=== PATIENT | female | born 1985 | race Caucasian/White ===

== ENCOUNTER 2017-01-24 10:38 | Emergency (ER) | payer OTHER ==
[2017-01-24 10:38] VITALS: BMI 25.2
[2017-01-24 10:55] VITALS: BP 113/74; PULSE 73; RESP 20; TEMP 98.7; O2SAT 97
--- NOTE | 2017-01-24 12:19 | C.PDOC ---
History Of Present Illness 31 yo female come in for evaluation of Left foot pain for past week. Pt describes pain is localized over dorsal aspect left foot, non-radiating and worse with weight bearing. Otherwise, pt denies known trauma or injury, fever, chills, skin changes, weakness, deformity, sensory or vascular deficits to Left foot. Ambulate to ED for evaluation, not in any apparent distress. Time Seen by Provider: 01/24/17 11:28 Chief Complaint (Nursing): Lower Extremity Problem/Injury History Per: Patient History/Exam Limitations: no limitations Onset/Duration Of Symptoms: Persistent (1 week) Current Symptoms Are (Timing): Still Present Past Medical History Reviewed: Historical Data, Nursing Documentation, Vital Signs Vital Signs: Last Vital Signs Temp 98.7 F 01/24/17 10:54 Pulse 73 01/24/17 10:54 Resp 20 01/24/17 10:54 BP 113/74 01/24/17 10:54 Pulse Ox 97 01/24/17 13:36 Family History: States: No Known Family Hx - Social History Hx Tobacco Use: No Hx Alcohol Use: No Hx Substance Use: No - Immunization History Hx Tetanus Toxoid Vaccination: Yes Hx Influenza Vaccination: Yes Hx Pneumococcal Vaccination: No Review Of Systems Except As Marked, All Systems Reviewed And Found Negative. Constitutional: Negative for: Fever, Chills Musculoskeletal: Positive for: Foot Pain (Left foot pain, dorsal aspect ), Other (No deformity. ) Neurological: Negative for: Weakness Physical Exam - Physical Exam Appears: Well, Non-toxic, No Acute Distress Skin: Normal Color, Warm, No Rash, No Ecchymosis Extremity: Normal ROM (Left foot), Tenderness (mild tenderness Left foot dorsal aspect overlying 5th MTB. No palpable deformity, no neurovascular deficits. No skin changes.), No Pedal Edema, No Calf Tenderness, Capillary Refill (less than 2sec to left foot.), No Deformity, No Swelling Extremity: Bilateral: Atraumatic Neurological/Psych: Oriented x3, Normal Speech, Normal Motor, Normal Sensation, Normal Reflexes ED Course And Treatment O2 Sat by Pulse Oximetry: 97 Pulse Ox Interpretation: Normal - Other Rad X-Ray - Left Foot X-Ray: Interpreted by Me, Viewed By Me Interpretation: no acute fx or dislocation Progress Note: On re-eavluation, pt is afebrile, hemodynamiclay stable. NOn- toxic. Left foot: exam c/w foot arthralgia. FAROM, no neurovascular deficits. No cellulitis. xray review and appears normal. Pt advised and ref. to f/u with Warehouse Production Worker in 2-3 days for re-evaluation. Return to ED if any worsening or new changes. Medical Decision Making Medical Decision Making: PLAN: * X-Ray - Left Foot * Motrin PO Disposition Counseled Patient/Family Regarding: Studies Performed, Diagnosis, Need For Followup, Rx Given - Disposition Referrals: Clinic,Med Surg [Primary Care Provider] - Podiatry Clinic [Outside] Disposition: HOME/ ROUTINE Disposition Time: 12:00 Condition: GOOD Additional Instructions: LIght duty to Left foot change shoe Foot stretching Follow up with Warehouse Production Worker in 2-3 days for re-evaluation. Return to ED if any worsening or new changes. Prescriptions: Ibuprofen [Motrin] 1 tab PO TID PRN #20 tab PRN Reason: Pain Instructions: Foot Sprain (ED) Print Language: TRISTANIAN - Clinical Impression Clinical Impression: Arthralgia of foot - PA / METALIZING SUPERVISOR / Resident Statement MD/DO has reviewed & agrees with the documentation as recorded. - Scribe Statement The provider has reviewed the documentation as recorded by the Scribe Sharon Lucas All medical record entries made by the Scribe were at my direction and personally dictated by me. I have reviewed the chart and agree that the record accurately reflects my personal performance of the history, physical exam, medical decision making, and the department course for this patient. I have also personally directed, reviewed, and agree with the discharge instructions and disposition.
--- NOTE | 2017-01-24 13:04 | RAD ---
PROCEDURE: Left Foot Radiographs. HISTORY: pain COMPARISON: None. FINDINGS: BONES: Normal. No fracture. JOINTS: Normal. SOFT TISSUES: Normal. OTHER FINDINGS: None. IMPRESSION: Normal left foot radiographs.
== END 2017-01-24 12:42 | disposition home or self-care (01) ==
LOC: SUPCPDRO 10:38 → C.ER 10:38
DX: M25.572 Pain in left ankle and joints of left foot (principal)

== ENCOUNTER 2017-11-14 09:30 | Emergency (ER) | payer SELFPAY ==
[2017-11-14 09:30] VITALS: BMI 25.2
[2017-11-14] MEDS ORDERED: Lidocaine 5% Patch TD STA (10:19)
--- NOTE | 2017-11-14 11:13 | C.PDOC ---
History Of Present Illness Phyllis Espinoza is a 32 year old female, with no past medical history, who presents to the emergency department complaining of lower back pain onset for x2 days after patient slipped on snow twice. Patient states she fell on her back the first time and on her buttocks the second time in the same day. Patient reports the pain is worst when she tries to get up, and when she sits for too long. She hasn't taken any pain medication since fall. She denies any head injury or other medical complaints. PMD: None provided. Time Seen by Provider: 11/14/17 10:10 Chief Complaint (Nursing): Back Pain History Per: Patient History/Exam Limitations: no limitations Onset/Duration Of Symptoms: Days (x2) Current Symptoms Are (Timing): Still Present Quality Of Discomfort: "Pain" Previous Symptoms: None Associated Symptoms: None Exacerbating Factor(s): Sitting, Standing Past Medical History Reviewed: Historical Data, Nursing Documentation, Vital Signs Vital Signs: Last Vital Signs Temp 98.5 F 11/14/17 11:22 Pulse 70 11/14/17 11:22 Resp 18 11/14/17 11:22 BP 115/76 11/14/17 11:22 Pulse Ox 99 11/14/17 11:22 - Medical History PMH: No Chronic Diseases Surgical History: No Surg Hx Family History: States: Unknown Family Hx - Social History Hx Tobacco Use: No Hx Alcohol Use: No Hx Substance Use: No - Immunization History Hx Tetanus Toxoid Vaccination: Yes Hx Influenza Vaccination: Yes Hx Pneumococcal Vaccination: No Review Of Systems Except As Marked, All Systems Reviewed And Found Negative. Constitutional: Negative for: Other (head injury) Musculoskeletal: Positive for: Back Pain (lower) Physical Exam - Physical Exam Skin: Normal Color, Warm, Dry Head: Atraumatic Eye(s): bilateral: Normal Inspection Neck: Normal ROM, Supple Back: Normal Inspection, No CVA Tenderness Extremity: Normal ROM, No Pedal Edema, No Deformity, No Swelling Extremity: Bilateral: Atraumatic Neurological/Psych: Oriented x3 ED Course And Treatment O2 Sat by Pulse Oximetry: 100 (RA) Pulse Ox Interpretation: Normal Medical Decision Making Medical Decision Making: Initial Impression: Back pain Initial Plan: --Tylenol 975 mg PO --Motrin tab 600 mg PO --Lidoderm 1ea TD --reevaluation 11:05 --Upon provider reevaluation patient is feeling better, is medically stable, and requires no further treatment in the ED at this time. Patient will be discharged home. Counseling was provided and all questions were answered regarding diagnosis and need for follow up with outpatient clinic. There is agreement to discharge plan. Return if symptoms persist or worsen. Disposition Counseled Patient/Family Regarding: Diagnosis, Need For Followup, Rx Given - Disposition Referrals: [facility] [Outside] Disposition: HOME/ ROUTINE Disposition Time: 11:11 Condition: STABLE Prescriptions: Ibuprofen [Motrin] 1 tab PO TID PRN #30 tab PRN Reason: Pain Lidocaine 5% [Lidoderm] 1 ea TD DAILY #2 patch Instructions: Back Pain (ED) Forms: Gen Discharge Inst Chadian, General Discharge Instructions, [facility] (Danish), [facility] (Chadian), Work Excuse - POA Present On Arrival: None - Clinical Impression Clinical Impression: Low back pain - Scribe Statement Jonny Marino Provider Attestation: All medical record entries made by the Scribe were at my direction and personally dictated by me. I have reviewed the chart and agree that the record accurately reflects my personal performance of the history, physical exam, medical decision making, and the department course for this patient. I have also personally directed, reviewed, and agree with the discharge instructions and disposition.
[2017-11-14 11:22] VITALS: BP 115/76; PULSE 70; RESP 18; TEMP 98.5
[2017-11-14 11:30] VITALS: O2SAT 100
== END 2017-11-14 11:23 | disposition home or self-care (01) ==
LOC: C.ER 09:30
DX: M54.5 Low back pain (principal)